=== PATIENT | female | born 1965 | race Caucasian/White ===

== ENCOUNTER 2019-02-28 06:50 | Emergency (ER) | payer BC ==
[2019-02-28 07:45] VITALS: BP 159/107; PULSE 94; TEMP 99; BMI 47.0
--- NOTE | 2019-02-28 08:22 | PDOC ---
History of Present Illness - General Chief Complaint: Urinary Problem Stated Complaint: UTI/Vag.Discharge Time Seen by Provider: 02/28/19 07:41 History Source: Patient Exam Limitations: Clinical Condition - History of Present Illness Initial Comments: 02/28/19 08:17 Patient with no significant past medical history presented with complaint of one -week history of burning with urination, urinary frequency and white vaginal discharge. Patient was seen at [facility] urgent care 5 days ago for symptoms and was started on Macrobid antibiotics and Pyridium for UTI which patient started having diarrhea and return to urgent care 2 days ago and was advised to stop antibiotics and was started on Diflucan and metronidazole for BV and candidiasis. Patient reports persistent burning with urination. Report mild nausea but no vomiting. Patient has not seen any MEDICAL STAFF PHYSICIAN due to not having a MEDICAL STAFF PHYSICIAN provider. Denies fever, chills, constipation, body aches, weakness. Denies any other symptoms Is this a multiple visit Asthma Patient?: No Past History - Past Medical History Allergies/Adverse Reactions: Allergies Allergy/AdvReac Type Severity Reaction Status Date / Time No Known Allergies Allergy Verified 02/28/19 07:15 Home Medications: Ambulatory Orders Cephalexin Monohydrate [Keflex -] 500 mg PO BID 7 Days #14 capsule 02/28/19 metroNIDAZOLE [Metronidazole] 500 mg PO DAILY 02/28/19 COPD: No HTN: No - Surgical History Lung Surgery: No - Immunization History Immunization Up to Date: No - Psycho Social/Smoking Cessation Hx Smoking History: Never smoked Have you smoked in the past 12 months: No Information on smoking cessation initiated: No Hx Alcohol Use: No Drug/Substance Use Hx: No Review of Systems - Review of Systems Able to Perform ROS?: Yes Is the patient limited [place]i proficient: No Constitutional: No: Chills, Fever, Malaise HEENTM: No: Symptoms Reported Respiratory: No: Symptoms reported, See HPI, Cough, Orthopnea, Shortness of Breath, SOB with Exertion, SOB at Rest, Stridor, Wheezing, Productive cough, Hemoptysis, Other Cardiac (ROS): No: Symptoms Reported, See HPI, Chest Pain, Edema, Irregular Heart Rate, Lightheadedness, Palpitations, Syncope, Chest Tightness, Other ABD/GI: Yes: Symptoms Reported, Diarrhea (loose stools), Nausea. No: Abdominal Distended, Abd. Pain w/ defecation, Blood Streaked Bowels, Constipated, Difficulty Swallowing, Poor Appetite, Poor Fluid Intake, Rectal Bleeding, Vomiting, Indigestion, Abdominal cramping : Yes: Symptoms Reported, Burning, Dysuria, Discharge, Frequency, Urgency. No : Flank Pain, Hematuria, Incontinence Musculoskeletal: No: Symptoms Reported, Back Pain All Other Systems: Reviewed and Negative *Physical Exam - Vital Signs Last Vital Signs Temp Pulse Resp BP Pulse Ox 99.0 F 94 H 16 159/107 H 97 02/28/19 07:19 02/28/19 07:19 02/28/19 07:19 02/28/19 07:19 02/28/19 07:19 - Physical Exam General Appearance: Yes: Nourished, Appropriately Dressed. No: Apparent Distress HEENT: positive: Normal ENT Inspection Neck: positive: Supple Respiratory/Chest: positive: Lungs Clear, Normal Breath Sounds. negative: Respiratory Distress, Accessory Muscle Use Cardiovascular: positive: Regular Rhythm, Regular Rate Gastrointestinal/Abdominal: positive: Normal Bowel Sounds, Flat, Soft. negative : Tender, Organomegaly Musculoskeletal: positive: Normal Inspection. negative: CVA Tenderness Extremity: positive: Normal Inspection Integumentary: positive: Normal Color Neurologic: positive: Fully Oriented, Alert, Normal Mood/Affect, Normal Response Medical Decision Making - Medical Decision Making 02/28/19 08:19 Patient with no significant past medical history presented with complaint of one -week history of burning with urination, urinary frequency and white vaginal discharge. Patient was seen at [facility] urgent care 5 days ago for symptoms and was started on Macrobid antibiotics and Pyridium for UTI which patient started having diarrhea and return to urgent care 2 days ago and was advised to stop antibiotics and was started on Diflucan and metronidazole for BV and candidiasis. Patient reports persistent burning with urination. Report mild nausea but no vomiting. Patient has not seen any MEDICAL STAFF PHYSICIAN due to not having a MEDICAL STAFF PHYSICIAN provider. Denies fever, chills, constipation, body aches, weakness. Denies any other symptoms Clinical exam unremarkable with no abdominal tenderness. Call made to urgent care who reported urine lab work and STD testing done urgent care came back negative. Given persistent urinary symptoms, will repeat UA and urine culture and discharge patient on Keflex antibiotics with MEDICAL STAFF PHYSICIAN follow -up. Plan discussed with patient. UA and urine culture ordered 02/28/19 09:38 UA shows leukocytosis. Urine culture pending. Patient be discharged home on Keflex antibiotics with MEDICAL STAFF PHYSICIAN follow-up. Patient advised to call MEDICAL STAFF PHYSICIAN office today to make a follow-up appointment. Patient voiced understanding of follow- up instructions and stable for discharge Discharge - Discharge Information Problems reviewed: Yes Clinical Impression/Diagnosis: Dysuria Condition: Stable Disposition: HOME - Admission No - Additional Discharge Information Prescriptions: Cephalexin Monohydrate [Keflex -] 500 mg PO BID 7 Days #14 capsule - Follow up/Referral Referrals: Derrick Martini MD [Staff Physician] - - Patient Discharge Instructions Patient Printed Discharge Instructions: DI for Dysuria -- Adult Additional Instructions: Your urine lab shows small amount of bacteria which urine culture is sent. Take medications as prescribed. Increase fluid intake. Follow-up with referred MEDICAL STAFF PHYSICIAN as soon as possible - Post Discharge Activity
--- NOTE | 2019-02-28 08:31 | PDOC ---
*Physical Exam - Vital Signs Last Vital Signs Temp Pulse Resp BP Pulse Ox 99.0 F 94 H 16 159/107 H 97 02/28/19 07:19 02/28/19 07:19 02/28/19 07:19 02/28/19 07:19 02/28/19 07:19 Medical Decision Making - Medical Decision Making 02/28/19 08:29 Patient seen and evaluated with the nurse practitioner. I agree with the overall evaluation, assessment, and management with the following summary of visit: 53-year-old female with persistent urinary and vaginal complaints over the last week, seen at outside urgent care x2 initially with work-up and treatment for UTI, 2 days of Macrobid then stopped secondary to diarrhea side effect, seen again and presumably treated for BV and candidiasis with Flagyl and Diflucan, antibiotic stopped at that time, presents now with persistent dysuria and urgency. No fevers or chills, no flank pain. Vital signs are normal, slightly elevated blood pressure which is not unusual per patient No CVA tenderness, abdominal exam as noted 53-year-old female with pelvic and urinary complaints. Call placed to the urgent care, urinalysis and urine culture reportedly normal, pelvic cultures also normal. Presentation could be explained by BV and candidiasis, had incomplete treatment for UTI, which is also high on the differential. Given no positive findings on pelvic culture, will continue BV and candidiasis treatment as previously prescribed Check urinalysis and urine culture, will treat empirically with cephalexin [employer] follow-up, understands return criteria Discharge - Discharge Information Clinical Impression/Diagnosis: Dysuria Condition: Stable - Follow up/Referral - Patient Discharge Instructions - Post Discharge Activity
[2019-02-28 09:17] LABS: EPI CELLS 1.9 /HPF (0-5/HPF); HYALINE CASTS 82 /lpf (0-8); PH,URINE 5.5 (5.0-8.0); URINE APPEARANCE CLOUDY; URINE BACTERIA 20.3 /hpf (NEGATIVE); URINE BILIRUBIN NEGATIVE (NEGATIVE); URINE COLOR DK YELLOW; URINE GLUCOSE (UA) NEGATIVE (NEGATIVE); URINE KETONE TRACE (NEGATIVE); URINE LEUK ESTERASE 3+ (NEGATIVE); URINE NITRITE NEGATIVE (NEGATIVE); URINE PROTEIN 2+ (NEGATIVE); URINE RBC 84 /hpf (0-4); URINE UROBILINOGEN 0.2 mg/dL (0.2-1.0); URINE WBC 132 /hpf (0-5)
== END 2019-02-28 09:34 | disposition home or self-care (01) ==
LOC: JER 06:50
DX: R30.0 Dysuria (principal)
CPT/HCPCS: 81003; 87086; 99282-25